=== PATIENT | female | born 2000 | race Caucasian/White ===

== ENCOUNTER 2023-02-15 05:14 | Observation (INO) ==
[2023-02-15] MEDS ORDERED: ONDANSETRON INJ 2 MG/ML 2 ML VIAL IV STA (05:35)
[2023-02-15] MEDS ORDERED: SODIUM CHLORIDE 0.9% 1,000 ML IV STA (05:35)
[2023-02-15 06:03] LABS: Basophils # (auto) 0.08 K/uL (0.00-0.20); Basophils % (auto) 0.5 %; Eosinophils # (auto) 0.15 K/uL (0.00-0.50); Eosinophils % (auto) 0.9 %; Hematocrit (blood only) 40.7 % (37.0-47.0); Hemoglobin 13.9 g/dl (12.0-16.0); Immature Granulocytes # (auto) 0.06 K/uL (0.01-0.20); Immature Granulocytes % (auto) 0.4 %; Lymphocytes # (auto) 1.79 K/uL (1.20-3.40); Lymphocytes % (auto) 10.8 %; Mean Corpuscular Hemoglobin 30.9 pg (25.0-34.0); Mean Corpuscular Hgb Conc 34.2 g/dL (32.0-36.0); Mean Corpuscular Volume 90.4 fL (80.0-100.0); Mean Platelet Volume 10.3 fL (9.4-12.4); Monocytes # (auto) 0.86 K/uL (0.11-0.59); Monocytes % (auto) 5.2 %; Neutrophils # (auto) 13.59 K/uL (1.40-6.50); Neutrophils % (auto) 82.2 %; Platelet Count 217 K/uL (130-400); RDW Coefficient of Variation 12.6 % (11.5-14.5); White Blood Count 16.53 K/ul (4.8-10.8)
[2023-02-15 06:11] LABS: Appearance Urine Cloudy (Clear); Bacteria Urine Automated 1+ (Negative); Bilirubin Urine Negative (Negative); Blood Urine 1+ (Negative); Color Urine Yellow; Epithelial Cell Urine Auto >30 /lpf (0-5); Glucose Urine UA Negative (Negative); Ketones Urine Negative (Negative); Leukocyte Esterase Urine Trace (Negative); Nitrite Urine Negative (Negative); Protein Urine Negative (Negative); RBC Urine Automated 0-4 /hpf (0-4); Specific Gravity Urine 1.024 (1.000-1.030); Urobilinogen Urine Negative (Negative)
[2023-02-15 06:16] LABS: Albumin Globulin Ratio 1.9 (0.9-2); Albumin Level 4.8 gm/dl (3.4-5.0); BUN Creatinine Ratio 19.4 (10-20); Bilirubin,Total 0.7 mg/dl (0.2-1.0); Creatinine Clr Calc Pharmacy 82.6 ml/min; Est GFR (African American) 101.8 ml/min; Est GFR (Non-African American) 87.9 ml/min; Globulin 2.5 gm/dl (2.5-4.0); Potassium 3.5 mmol/L (3.5-5.1); Total Protein 7.3 gm/dl (6.0-8.3)
--- NOTE | 2023-02-15 06:41 | Emergency Department Note ---
History of Present Illness General Chief complaint: Abdominal Pain Stated complaint: REALLY SHARP PAIN IN LRQ, VOMITING, APPY? Time Seen by Provider: 02/15/23 06:29 Source: patient and RN notes reviewed Mode of arrival: ambulatory Limitations: no limitations History of Present Illness Maximum Pain Intensity: 6 This patient is a 22-year-old female who comes in with right lower quadrant abdominal pain. It started around 9:00 last evening and she felt a little bit better but woke up at 345 with significantly worse pain. She had nausea she vomited once. No blood. She has had diarrhea x1 as well without blood. Denies had a normal period 2 weeks ago no but no vaginal bleed or discharge no dysuria hematuria no trauma or injury. Denies fever chills no chest pain shortness of breath or cough. No history of similar. No abdominal surgeries. No history of gynecologic issues or ovarian cyst Home Medications Medication Instructions Recorded Confirmed Type azelaic acid 15 % topical gel 1 applic topical DAILY PRN Other 02/15/23 02/15/23 History clindamycin phosphate 1 % topical 1 applic topical BID PRN Other 02/15/2308/05 History swab escitalopram oxalate 10 mg tablet 10 mg PO QPM 02/15/23 02/15/23 History norethindrone 1 mg-ethinyl 1 tab PO QPM 02/15/23 02/15/23 History estradiol 10 mcg (24)-iron 10 mcg(2) tablet (Lo Loestrin Fe) propranolol 10 mg tablet 10 mg PO BID PRN anxiety/panic 02/15/23 02/15/23 History Allergies Allergy/AdvReac Type Severity Reaction Status Date / Time No Known Allergies Allergy Verified 08/07/22 20:19 Past Med/Surg History Medical History (Updated 02/15/23 @ 14:19 by Slim Bailey MD) Acute appendicitis Encounter for pre-operative examination Social History Smoking Status: Never smoker Preferred Language: Estonian Communication Ability: Effective Feels Safe at Home: Yes Assistive Devices: None Immunizations: Past medical historydenies any significant medical history except anxiety which she says has been stable. No surgical history Social historyshe is a student at [employer] does not smoke. Drinks socially. Denies drug use Review of Systems A total of 10 systems reviewed and were otherwise negative Physical Exam Vital Signs Vital Signs - 24 hr 02/15/23 05:21 02/15/23 06:56 02/15/23 09:55 Temperature 36.8 C 37.0 C Temperature Source Temporal Artery Scan Oral Pulse Rate 103 H Pulse Rate [Left] 89 68 Pulse Rhythm Regular Pulse Rhythm [Left] Regular Regular Pulse Strength Normal Pulse Strength [Left] Normal Normal Respiratory Rate 20 18 18 Respiratory Effort / Characteristics Non-Labored Spontaneous Non-Labored Non-Labored Spontaneous Respiratory Depth Normal Normal Normal Respiratory Pattern Regular Regular Blood Pressure 108/66 Blood Pressure [Right Arm] 121/93 108/55 L Blood Pressure Mean 80 Blood Pressure Mean [Right Arm] 102 72 Blood Pressure Position Sitting Blood Pressure Position [Right Arm] Sitting Semi-fowlers Pulse Oximetry 99 98 100 Oxygen Delivery Method Room Air Room Air Room Air Sepsis Recent Fever Within 48 Hours No Sepsis New/Unexplained Change in Mental Status N/A Sepsis Action Taken by Nursing No Action Required 02/15/23 09:38 Temperature 37.0 C Temperature Source Oral Pulse Rate Pulse Rate [Left] 66 Pulse Rhythm Pulse Rhythm [Left] Regular Pulse Strength Pulse Strength [Left] Normal Respiratory Rate 18 Respiratory Effort / Characteristics Non-Labored Respiratory Depth Normal Respiratory Pattern Regular Blood Pressure Blood Pressure [Right Arm] 104/61 Blood Pressure Mean Blood Pressure Mean [Right Arm] 75 Blood Pressure Position Blood Pressure Position [Right Arm] Pulse Oximetry 98 Oxygen Delivery Method Room Air Sepsis Recent Fever Within 48 Hours Sepsis New/Unexplained Change in Mental Status Sepsis Action Taken by Nursing General: Well developed well nourished [id number] young female who appears in no acute distress, breathing comfortably on room air. Normal speech HEENT: Normal cephalic atraumatic. Pupils are equal round and reactive to light. Sclera anicteric extraocular movements are intact. Oropharynx is pink with moist mucous membranes. No swelling of the mouth lips or tongue. Neck: Supple with a midline trachea. No meningeal signs or stiffness, no JVD or bruits. No Stridor. Chest: Clear to auscultation bilaterally. No wheezes or rhonchi. No increased work of breathing. Heart: Regular rate and rhythm without murmurs or gallops. Abdomen: Soft, moderately tender in the right lower quadrant nondistended without rebound guarding or rigidity. Extremities: No cyanosis clubbing or edema. No calf tenderness or assymetry Spine/Back. Non tender to palpation. No CVA tenderness Skin: Good turgor without rashes. Neurologic exam: Nonfocal moving all 4 extremities symmetrically Course Administered Medications Lactated Ringer's (Lr) 1,000 mls @ 80 mls/hr IV .[id number] JAZZY Stop: 03/17/23 12:19 Last Admin: 02/15/23 12:30 Dose: 80 mls/hr Documented By: JOHANA Discontinued Medications Bacitracin (Bacitracin Oint 14 Gm Tube) Confirm Administered Dose 45 appln .ROUTE .STK-MED ONE Stop: 02/15/23 10:07 Last Admin: 02/15/23 11:07 Dose: 1 appln Documented By: TOMMIE Bupivacaine HCl (Bupivacaine 0.5 % 5 Mg/1 Ml Mpf 30ml Vial) Confirm Administered Dose 30 ml .ROUTE .STK-MED ONE Stop: 02/15/23 10:07 Last Admin: 02/15/23 11:07 Dose: 7.5 ml Documented By: TOMMIE Sodium Chloride (Nss) 1,000 mls @ 999 mls/hr IV .Q1H1M STA Stop: 02/15/23 06:35 Last Infusion: 02/15/23 06:45 Dose: 0 mls/hr Documented By: Admin: 02/15/23 05:40 Dose: 999 mls/hr Documented By: CORI Cefoxitin Sodium 2,000 mg/ (Dextrose) 60 mls @ 100 mls/hr IV ONE ONE; Protocol Stop: 02/15/23 10:35 Last Infusion: 02/15/23 12:18 Dose: 0 mls/hr Documented By: Admin: 02/15/23 10:23 Dose: 100 mls/hr Documented By: SULEMA Lactated Ringer's (Lr) 1,000 mls @ 15 mls/hr IV .Q24H JAZZY Stop: 03/17/23 10:14 Last Infusion: 02/15/23 12:34 Dose: 0 mls/hr Documented By: Infusion: 02/15/23 10:23 Dose: 15 mls/hr Documented By: Admin: 02/15/23 10:12 Dose: 15 mls/hr Documented By: MING Ioversol (Optiray 320 100ml) 94 ml IV ONCE ONE Stop: 02/15/23 08:23 Last Admin: 02/15/23 08:22 Dose: 94 ml Documented By: SARAH Lidocaine HCl (Lidocaine 1% Local 20 Ml Vial) Confirm Administered Dose 1 ml .ROUTE .STK-MED ONE Stop: 02/15/23 10:07 Last Admin: 02/15/23 11:08 Dose: 7.5 ml Documented By: TOMMIE Ondansetron HCl (Ondansetron Inj 2 Mg/Ml 2 Ml Vial) 4 mg IV NOW STA Stop: 02/15/23 05:36 Last Admin: 02/15/23 05:39 Dose: 4 mg Documented By: CORI Medical Decision Making Differential Diagnosis Appendicitis, ovarian cyst or pathology, UTI, kidney stone, colitis, GI illness, epiploic appendagitis, intra-abdominal process Medical Records Attestation: I reviewed the patient's medical records. Home Medications Current Medication List: was personally reviewed by me Laboratory Data Attestation: I reviewed the patient's lab results. 02/15/23 05:35 02/15/23 05:35 Lab Results 02/15/23 02/15/23 02/15/23 Range/Units 05:34 05:35 05:35 WBC 16.53 H (4.8-10.8) K/ul RBC 4.50 (4.20-5.40) M/uL Hgb 13.9 (12.0-16.0) g/dl Hct 40.7 (37.0-47.0) % MCV 90.4 (80.0-100.0) fL MCH 30.9 (25.0-34.0) pg MCHC 34.2 (32.0-36.0) g/dL RDW Std Deviation 42.0 (36.4-46.3) fL RDW Coeff of Eliazar 12.6 (11.5-14.5) % Plt Count 217 (130-400) K/uL MPV 10.3 (9.4-12.4) fL Immature Gran % (Auto) 0.4 % Neut % (Auto) 82.2 % Lymph % (Auto) 10.8 % [place] % (Auto) 5.2 % Eos % (Auto) 0.9 % Baso % (Auto) 0.5 % Neut # (Auto) 13.59 H (1.40-6.50) K/uL Lymph # (Auto) 1.79 (1.20-3.40) K/uL [place] # (Auto) 0.86 H (0.11-0.59) K/uL Eos # (Auto) 0.15 (0.00-0.50) K/uL Baso # (Auto) 0.08 (0.00-0.20) K/uL Immature Gran # (Auto) 0.06 (0.01-0.20) K/uL Sodium 138 (136-145) mmol/L Potassium 3.5 (3.5-5.1) mmol/L Chloride 104 (98-107) mmol/L Carbon Dioxide 26 (21-32) mmol/L Anion Gap 8 (3-11) BUN 18 (6-23) mg/dl Creatinine 0.93 (0.6-1.2) mg/dl Est Cr Clr Drug Dosing 82.6 ml/min Est GFR ( Amer) 101.8 ml/min Est GFR (Non-Af Amer) 87.9 ml/min BUN/Creatinine Ratio 19.4 (10-20) Glucose 100 H (70-99(Fasting)) mg/dl Calcium 9.0 (8.6-10.3) mg/dl Total Bilirubin 0.7 (0.2-1.0) mg/dl AST 19 (13-39) U/L ALT 15 (7-52) U/L Alkaline Phosphatase 38 (34-104) U/L Total Protein 7.3 (6.0-8.3) gm/dl Albumin 4.8 (3.4-5.0) gm/dl Globulin 2.5 (2.5-4.0) gm/dl Albumin/Globulin Ratio 1.9 (0.9-2) Lipase 16 (11-82) U/L POC Ur Test NEG (NEG) Imaging Data Attestation: I personally reviewed and interpreted this imaging study as follows: My Impression: CAT scan of the abdomen and pelvis-I do not see any bowel obstruction or free air Radiologist's Impression: Abdomen/Pelvis CT 02/15/23 05:53 CT OF THE ABDOMEN AND PELVIS WITH CONTRAST CLINICAL HISTORY: Right lower quadrant pain, vomiting/nausea COMPARISON STUDY: None. TECHNIQUE: Following IV administration of 94 mL of Optiray, axial images of the abdomen and pelvis were obtained from the lung bases to the proximal femurs. Images were reviewed in the axial, sagittal, and coronal planes. IV contrast was administered without complication. Automated exposure control was utilized for the study. A dose lowering technique was utilized adhering to the principles of ALARA. Oral contrast was administered. CT DOSE: 429.97 mGy.cm FINDINGS: Lung bases are unremarkable. No pneumatosis, free air or portal venous gas is present. Periportal edema and gallbladder wall thickening are present. There is no biliary or pancreatic ductal dilatation. The spleen, adrenal glands, kidneys and pancreas are unremarkable. There is no hydronephrosis. There is no evidence for a bowel obstruction. The appendix is mildly distended, measuring 8 mm in thickness. The appendiceal wall is mildly thickened. There is trace fluid adjacent to the appendiceal tip. The appendix is along the medial aspect of the right iliac vessels. There is no free air or abscess. Trace pelvic fluid is also noted. A 2.1 cm dominant follicle within the left ovary is noted. Major vasculature is patent. No fluid collections are present. IMPRESSION: 1. Slightly distended appendix with mild wall thickening and trace periappendiceal fluid. No free air or abscess. The findings favor early acute appendicitis. 2. Trace fluid within the pelvis. 3. Periportal edema and gallbladder wall thickening which may be related to hydration. 4. Dominant follicle within the left ovary. ACT 112: Negative or not required by law. Electronically signed by: Zane Beasley M.D. 02/15/2023 8:50 AM MDM Narrative This patient comes in as described above. She was placed in room C8. She has right lower quadrant abdominal pain. Orders have been started prior to my arrival and she was drinking prep when I saw her she appears well she does have some moderate tenderness in right lateral quadrant. White count is elevated at 16. test is negative. She is no significant acrylate or metabolic abnormality. Her urinalysis does have white cells however she has greater than 30 epithelial cells and appears to be contaminated specimen she has no dysuria hematuria to suggest a UTI. She was offered pain medication but declined. She has no significant electrolyte or metabolic abnormalities. She is not . Her CAT scan shows findings consistent with an early acute appendicitis. I did consult Dr. Lam from surgery he came in and saw the patient and is going to take her to the operating room for appendectomy. Impression & Plan Acute appendicitis, Abdominal pain, Not currently Discharge Plan Visit Data Chief Complaint: Abdominal Pain Stated Complaint: REALLY SHARP PAIN IN LRQ, VOMITING, APPY? ED Provider: Slim Bailey Discharge Problem: Acute appendicitis, Abdominal pain, Not currently Patient Disposition: Admitted As Inpatient Discharge Instructions Interventions: ED Discharge Assessment Last Done: 02/15/23 10:00
[2023-02-15] MEDS ORDERED: OPTIRAY 320 100ml IV ONE (08:22)
--- NOTE | 2023-02-15 08:51 | CT Scan Report ---
CT OF THE ABDOMEN AND PELVIS WITH CONTRAST CLINICAL HISTORY: Right lower quadrant pain, vomiting/nausea COMPARISON STUDY: None. TECHNIQUE: Following IV administration of 94 mL of Optiray, axial images of the abdomen and pelvis we re obtained from the lung bases to the proximal femurs. Images were reviewed in the axial, sagittal, and coronal planes. IV contrast was administered without complication. Automated exposure control wa s utilized for the study. A dose lowering technique was utilized adhering to the principles of ALARA . Oral contrast was administered. CT DOSE: 429.97 mGy.cm FINDINGS: Lung bases are unremarkable. No pneumatosis, free air or portal venous gas is present. Iris portal edema and gallbladder wall thickening are present. There is no biliary or pancreatic ductal di latation. The spleen, adrenal glands, kidneys and pancreas are unremarkable. There is no hydronephros is. There is no evidence for a bowel obstruction. The appendix is mildly distended, measuring 8 mm in thickness. The appendiceal wall is mildly thickened. There is trace fluid adjacent to the appendicea l tip. The appendix is along the medial aspect of the right iliac vessels. There is no free air or ab scess. Trace pelvic fluid is also noted. A 2.1 cm dominant follicle within the left ovary is noted. M ajor vasculature is patent. No fluid collections are present. IMPRESSION: 1. Slightly distended appendix with mild wall thickening and trace periappendiceal fluid. No free air or abscess. The findings favor early acute appendicitis. 2. Trace fluid within the pelvis. 3. Periportal edema and gallbladder wall thickening which may be related to hydration. 4. Dominant follicle within the left ovary. ACT 112: Negative or not required by law. Electronically signed by: Zane Beasley M.D. 02/15/2023 8:50 AM
--- NOTE | 2023-02-15 09:30 | Surgery Consultation ---
Date of Consultation February 15, 2023 Assessment & Plan (1) Acute appendicitis: Assessment: Patient is a 22 years old female who presented to ED with a 1 day history of right lower quadrant pain, with nausea and vomiting. WBC 16,000. CT scan diagnosis of early acute appendicitis. Plan: Based on the patient history physical exam labs and the CT finding. I recommend to do laparoscopy appendectomy possible open. I did talk to patient about the benefit the risk and alternate of the procedure. I indicated the risks may include but not limited such as bleeding, infection, abscess, injury to other organs, bowel obstruction, incisional hernia. Patient understand. She signed informed consent. I answered all questions. History of Present Illness Reason for Consultation: Acute appendicitis Requesting Physician: Slim Bailey History of Present Illness CC: Right lower quadrant pain HPI: Patient is a 22 years old female who presented to ED with 1 day history right lower quadrant pain. The pain started last night around 9 PM. Patient had the worst right lower quadrant pain earlier this morning. Recent nausea and vomiting. No bloody vomiting. diarrhea 1 time. patient denies fever. no dysuria. WBC 16,000. Patient had a CT scan diagnosis early acute appendicitis. Allergies Allergy/AdvReac Type Severity Reaction Status Date / Time No Known Allergies Allergy Verified 08/07/22 20:19 Home Medications Medication Instructions Recorded Confirmed Type azelaic acid 15 % topical gel 1 applic topical DAILY PRN Other 02/15/23 02/15/23 History clindamycin phosphate 1 % topical 1 applic topical BID PRN Other 02/15/23 02/15/23 History swab escitalopram oxalate 10 mg tablet 10 mg PO QPM 02/15/23 02/15/23 History norethindrone 1 mg-ethinyl 1 tab PO QPM 02/15/23 02/15/23 History estradiol 10 mcg (24)-iron 10 mcg(2) tablet (Lo Loestrin Fe) propranolol 10 mg tablet 10 mg PO BID PRN anxiety/panic 02/15/23 02/15/23 History Patient History Social History Smoking Status: Never smoker Preferred Language: Latvian Feels Safe at Home: Yes Review of Systems Constitutional: as per Subjective / HPI Eyes: as per Subjective / HPI Respiratory: as per Subjective / HPI Cardiovascular: as per Subjective / HPI Gastrointestinal: as per Subjective / HPI Genitourinary: as per Subjective / HPI Neurologic: as per Subjective / HPI Psychiatric: as per Subjective / HPI Endocrine: as per Subjective / HPI Hematologic / Lymphatic: as per Subjective / HPI Physical Exam Constitutional: WD/WN, vitals as above Eyes: PERRL, conjunctivae normal, anicteric sclerae Neck: trachea midline, no thyromegaly Respiratory: normal respiratory effort, lungs clear to auscultation Cardiovascular: RRR, no murmur, no edema Gastrointestinal (Abdomen): tenderness at RLQ, no rebound pain, no distend, BS +. Musculoskeletal: no cyanosis or clubbing, extremities motor strength 5/5 Neurologic: patellar DTR's 2+ bilat, sensation intact Psychiatric: A+Ox3, euthymic affect Results & Data Vital Signs (Past 12 Hours) Vital Signs Temp Pulse Pulse Resp BP BP Pulse Ox 02/15/23 06:56 89 18 121/93 98 02/15/23 05:21 36.8 C 103 H 20 108/66 99 O2 Del Method 02/15/23 06:56 Room Air 02/15/23 05:21 Room Air Laboratory Results Lab Results 02/15/23 02/15/23 02/15/23 Range/Units 05:34 05:35 05:35 WBC 16.53 H (4.8-10.8) K/ul RBC 4.50 (4.20-5.40) M/uL Hgb 13.9 (12.0-16.0) g/dl Hct 40.7 (37.0-47.0) % MCV 90.4 (80.0-100.0) fL MCH 30.9 (25.0-34.0) pg MCHC 34.2 (32.0-36.0) g/dL RDW Std Deviation 42.0 (36.4-46.3) fL RDW Coeff of Eliazar 12.6 (11.5-14.5) % Plt Count 217 (130-400) K/uL MPV 10.3 (9.4-12.4) fL Immature Gran % (Auto) 0.4 % Neut % (Auto) 82.2 % Lymph % (Auto) 10.8 % [place] % (Auto) 5.2 % Eos % (Auto) 0.9 % Baso % (Auto) 0.5 % Neut # (Auto) 13.59 H (1.40-6.50) K/uL Lymph # (Auto) 1.79 (1.20-3.40) K/uL [place] # (Auto) 0.86 H (0.11-0.59) K/uL Eos # (Auto) 0.15 (0.00-0.50) K/uL Baso # (Auto) 0.08 (0.00-0.20) K/uL Immature Gran # (Auto) 0.06 (0.01-0.20) K/uL Sodium 138 (136-145) mmol/L Potassium 3.5 (3.5-5.1) mmol/L Chloride 104 (98-107) mmol/L Carbon Dioxide 26 (21-32) mmol/L Anion Gap 8 (3-11) BUN 18 (6-23) mg/dl Creatinine 0.93 (0.6-1.2) mg/dl Est Cr Clr Drug Dosing 82.6 ml/min Est GFR ( Amer) 101.8 ml/min Est GFR (Non-Af Amer) 87.9 ml/min BUN/Creatinine Ratio 19.4 (10-20) Glucose 100 H (70-99(Fasting)) mg/dl Calcium 9.0 (8.6-10.3) mg/dl Total Bilirubin 0.7 (0.2-1.0) mg/dl AST 19 (13-39) U/L ALT 15 (7-52) U/L Alkaline Phosphatase 38 (34-104) U/L Total Protein 7.3 (6.0-8.3) gm/dl Albumin 4.8 (3.4-5.0) gm/dl Globulin 2.5 (2.5-4.0) gm/dl Albumin/Globulin Ratio 1.9 (0.9-2) Lipase 16 (11-82) U/L Urine Color Urine Appearance (Clear) Urine pH (4.5-7.5) Ur Specific [place] (1.000-1.030) Urine Protein (Negative) Urine Glucose (UA) (Negative) Urine Ketones (Negative) Urine Blood (Negative) Urine Nitrite (Negative) Urine Bilirubin (Negative) Urine Urobilinogen (Negative) Ur Leukocyte Esterase (Negative) Urine WBC (Auto) (0-5) /hpf Urine RBC (Auto) (0-4) /hpf U Hyaline Cast (Auto) (0-5) /lpf U Epithel Cells (Auto) (0-5) /lpf Urine Bacteria (Auto) (Negative) POC Ur Test NEG (NEG) 02/15/23 Range/Units Unknown WBC (4.8-10.8) K/ul RBC (4.20-5.40) M/uL Hgb (12.0-16.0) g/dl Hct (37.0-47.0) % MCV (80.0-100.0) fL MCH (25.0-34.0) pg MCHC (32.0-36.0) g/dL RDW Std Deviation (36.4-46.3) fL RDW Coeff of Eliazar (11.5-14.5) % Plt Count (130-400) K/uL MPV (9.4-12.4) fL Immature Gran % (Auto) % Neut % (Auto) % Lymph % (Auto) % [place] % (Auto) % Eos % (Auto) % Baso % (Auto) % Neut # (Auto) (1.40-6.50) K/uL Lymph # (Auto) (1.20-3.40) K/uL [place] # (Auto) (0.11-0.59) K/uL Eos # (Auto) (0.00-0.50) K/uL Baso # (Auto) (0.00-0.20) K/uL Immature Gran # (Auto) (0.01-0.20) K/uL Sodium (136-145) mmol/L Potassium (3.5-5.1) mmol/L Chloride (98-107) mmol/L Carbon Dioxide (21-32) mmol/L Anion Gap (3-11) BUN (6-23) mg/dl Creatinine (0.6-1.2) mg/dl Est Cr Clr Drug Dosing ml/min Est GFR ( Amer) ml/min Est GFR (Non-Af Amer) ml/min BUN/Creatinine Ratio (10-20) Glucose (70-99(Fasting)) mg/dl Calcium (8.6-10.3) mg/dl Total Bilirubin (0.2-1.0) mg/dl AST (13-39) U/L ALT (7-52) U/L Alkaline Phosphatase (34-104) U/L Total Protein (6.0-8.3) gm/dl Albumin (3.4-5.0) gm/dl Globulin (2.5-4.0) gm/dl Albumin/Globulin Ratio (0.9-2) Lipase (11-82) U/L Urine Color Yellow Urine Appearance Cloudy A (Clear) Urine pH 5.0 (4.5-7.5) Ur Specific [place] 1.024 (1.000-1.030) Urine Protein Negative (Negative) Urine Glucose (UA) Negative (Negative) Urine Ketones Negative (Negative) Urine Blood 1+ H (Negative) Urine Nitrite Negative (Negative) Urine Bilirubin Negative (Negative) Urine Urobilinogen Negative (Negative) Ur Leukocyte Esterase Trace H (Negative) Urine WBC (Auto) 5-10 H (0-5) /hpf Urine RBC (Auto) 0-4 (0-4) /hpf U Hyaline Cast (Auto) 1-5 (0-5) /lpf U Epithel Cells (Auto) >30 H (0-5) /lpf Urine Bacteria (Auto) 1+ H (Negative) POC Ur Test (NEG) Diagnostic Findings CT OF THE ABDOMEN AND PELVIS WITH CONTRAST CLINICAL HISTORY: Right lower quadrant pain, vomiting/nausea COMPARISON STUDY: None. TECHNIQUE: Following IV administration of 94 mL of Optiray, axial images of the abdomen and pelvis were obtained from the lung bases to the proximal femurs. Images were reviewed in the axial, sagittal, and coronal planes. IV contrast was administered without complication. Automated exposure control was utilized for the study. A dose lowering technique was utilized adhering to the principles of ALARA. Oral contrast was administered. CT DOSE: 429.97 mGy.cm FINDINGS: Lung bases are unremarkable. No pneumatosis, free air or portal venous gas is present. Periportal edema and gallbladder wall thickening are present. There is no biliary or pancreatic ductal dilatation. The spleen, adrenal glands, kidneys and pancreas are unremarkable. There is no hydronephrosis. There is no evidence for a bowel obstruction. The appendix is mildly distended, measuring 8 mm in thickness. The appendiceal wall is mildly thickened. There is trace fluid adjacent to the appendiceal tip. The appendix is along the medial aspect of the right iliac vessels. There is no free air or abscess. Trace pelvic fluid is also noted. A 2.1 cm dominant follicle within the left ovary is noted. Major vasculature is patent. No fluid collections are present. IMPRESSION: 1. Slightly distended appendix with mild wall thickening and trace periappendiceal fluid. No free air or abscess. The findings favor early acute appendicitis. 2. Trace fluid within the pelvis. 3. Periportal edema and gallbladder wall thickening which may be related to hydration. 4. Dominant follicle within the left ovary.
[2023-02-15] MEDS ORDERED: LIDOCAINE 2% 2 ML VIAL/AMP(20MG/ML) INFIL ONE (09:34)
[2023-02-15] MEDS ORDERED: fentaNYL citrate PF 100 MCG/2 ML VIAL ONE ×2 (09:34→10:39)
[2023-02-15] MEDS ORDERED: ONDANSETRON INJ 2 MG/ML 2 ML VIAL ONE (09:34)
[2023-02-15] MEDS ORDERED: PROPOFOL IV EMULSION 10 MG/ML 20 ML VIAL IV ONE (09:34)
[2023-02-15] MEDS ORDERED: DEXAMETHASONE SOD INJ 4 MG/ML VIAL ONE (09:34)
[2023-02-15] MEDS ORDERED: MIDAZOLAM HCL 1 MG/ML 2ML VIAL ONE (09:34)
[2023-02-15] MEDS ORDERED: ROCURONIUM BROMIDE 10 MG/ML 5 ML VIAL IV ONE (09:34)
--- NOTE | 2023-02-15 09:42 | History & Physical Bridge Note ---
Date of Service February 15, 2023 History & Physical Bridge Note I have examined the patient, reviewed the History & Physical and in the interval since the performance of the History & Physical I have noted the following changes of clinical significance: no changes noted
[2023-02-15] MEDS ORDERED: ePHEDrine sulfate 50 MG/ML AMP IV PRN (09:56)
[2023-02-15] MEDS ORDERED: ATROPINE SULFATE 0.1 MG/ML 10ML SYR IV PRN (09:56)
[2023-02-15] MEDS ORDERED: fentaNYL citrate PF 100 MCG/2 ML VIAL IV PRN (09:56)
[2023-02-15] MEDS ORDERED: ONDANSETRON INJ 2 MG/ML 2 ML VIAL IV PRN ×2 (09:56→12:20)
[2023-02-15] MEDS ORDERED: PROMETHAZINE HCL 6.25 MG in SODIUM CHLORIDE 0.9% 50 ML IV PRN (09:56)
[2023-02-15] MEDS ORDERED: HYDROmorphone INJ 1 MG/ML SYRINGE IV PRN (09:56)
--- NOTE | 2023-02-15 09:58 | Anesthesiology Consultation ---
Date of Service February 15, 2023 Assessment & Plan (1) Encounter for pre-operative examination: Chart Review Chart Review: Acceptable Risk for Surgery and Patient NOT seen in Pre Admission Testing Consults Requested none History Surgery Operation Date: 02/15/23 11:35 Proposed Procedures p Laparoscopic Appendectomy - Constantino Lam MD Height/Weight Height: 5 ft 4 in Weight: 57.3 kg Allergies Allergy/AdvReac Type Severity Reaction Status Date / Time No Known Allergies Allergy Verified 08/07/22 20:19 Medications Home Medications Medication Instructions Recorded Confirmed Last Taken azelaic acid 15 % topical gel 1 applic topical DAILY PRN Other 02/15/23 02/15/23 Unknown clindamycin phosphate 1 % topical 1 applic topical BID PRN Other 02/15/23 02/15/23 Unknown swab escitalopram oxalate 10 mg tablet 10 mg PO QPM 02/15/23 02/15/23 02/14/23 norethindrone 1 mg-ethinyl 1 tab PO QPM 02/15/23 02/15/23 02/14/23 estradiol 10 mcg (24)-iron 10 mcg(2) tablet (Lo Loestrin Fe) propranolol 10 mg tablet 10 mg PO BID PRN anxiety/panic 02/15/23 02/15/23 Unknown Past Medical History Medical History (Updated 02/15/23 @ 09:57 by Fahad Cordoba MD) Acute appendicitis Encounter for pre-operative examination Social History Smoking Status: Never smoker Physical Exam Vital Signs Last Vital Signs Temp 36.8 C 02/15/23 05:21 Pulse 89 02/15/23 06:56 Resp 18 02/15/23 06:56 BP 121/93 02/15/23 06:56 Pulse Ox 98 02/15/23 06:56 O2 Del Method Room Air 02/15/23 06:56 Testing Laboratory Results 02/15/23 05:35 02/15/23 05:35 Urine Color Yellow 02/15/23 Unknown Urine Appearance Cloudy (Clear) A 02/15/23 Unknown Urine pH 5.0 (4.5-7.5) 02/15/23 Unknown Ur Specific Eclectic 1.024 (1.000-1.030) 02/15/23 Unknown Urine Protein Negative (Negative) 02/15/23 Unknown Urine Glucose (UA) Negative (Negative) 02/15/23 Unknown Urine Ketones Negative (Negative) 02/15/23 Unknown Urine Nitrite Negative (Negative) 02/15/23 Unknown Ur Leukocyte Esterase Trace (Negative) H 02/15/23 Unknown Urine WBC (Auto) 5-10 /hpf (0-5) H 02/15/23 Unknown Urine RBC (Auto) 0-4 /hpf (0-4) 02/15/23 Unknown U Hyaline Cast (Auto) 1-5 /lpf (0-5) 02/15/23 Unknown U Epithel Cells (Auto) >30 /lpf (0-5) H 02/15/23 Unknown Urine Bacteria (Auto) 1+ (Negative) H 02/15/23 Unknown 02/15/23 05:34 POC Ur Test NEG
[2023-02-15] MEDS ORDERED: cefOXitin 2,000 MG in DEXTROSE 5% 50 ML IV ONE (10:00)
[2023-02-15] MEDS ORDERED: BACITRACIN OINT 14 GM TUBE ONE (10:06)
[2023-02-15] MEDS ORDERED: BUPIVACAINE 0.5 % 5 MG/1 ML MPF 30ML VIAL ONE (10:06)
[2023-02-15] MEDS ORDERED: LIDOCAINE 1% LOCAL 20 ML VIAL ONE (10:06)
[2023-02-15] MEDS ORDERED: LACTATED RINGER'S 1,000 ML IV SCH ×2 (10:15→12:20)
[2023-02-15] MEDS ORDERED: GLYCOPYRROLATE 0.2 MG/ML VIAL ONE (10:59)
[2023-02-15] MEDS ORDERED: NEOSTIGMINE METHYLSULFATE 1 MG/ML 10ML VIAL ONE (10:59)
[2023-02-15] MEDS ORDERED: PHENYLEPHRINE 100MCG/ML 5ML SYR ONE (11:01)
[2023-02-15] MEDS ORDERED: KETOROLAC 30 MG/ML VIAL ONE (11:01)
--- NOTE | 2023-02-15 11:15 | Post Operative Brief Note ---
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
--- NOTE | 2023-02-15 12:14 | Operative Report ---
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 WBC 16,000. CT scan diagnosis of early acute appendicitis. Plan: Based on the patient history physical exam labs and the CT finding. I recommend to do laparoscopy appendectomy possible open. I did talk to patient about the benefit the risk and alternate of the procedure. I indicated the risks may include but not limited such as bleeding, infection, abscess, injury to other organs, bowel obstruction, incisional hernia. Patient understand. She signed informed consent. I answered all questions. Description of Procedure After we identified patient to verify procedure. We brought patient to the OR. Put the patient on the supine position on the OR table. Patient received a SCD on bilateral legs to prevent DVT. Also patient received 2000 mg cefxitin IV for prophylactic antibiotic. Patient received general anesthesia without difficulty. pt had Spence catheter insertion to drainage urine. The abdomen was propped and dropped in routine sterile fashion. After timeout. I injections of local anesthesia by using 1% lidocaine mixed with 0.5% Marcaine just above the umbilical area. The make a small incisions as above umbilical, open fascia and peritoneum under direct vision. put The Honeycutt trocar in. Connected to CO2 to create pneumoperitoneum, the flow rate is 6 L/min. Pressure no more than 14 mmHg. Once get nice pneumoperitoneum. Put a scopy in to take look around the abdomen. the omental cover on the right lower quadrant area. then we put other two 5 mm trocars on the left lower quadrant area. We used a grasper to to hold cecum area. We found the patient had enlarge appendix with inflammation on appendix, which confirm diagnosis acute appendicitis. We mobilized the appendix by using a harmonic to take down the appendiceal. I used the 45 mm Endo RITA staple transection on the base of appendix. With double identified the base of appendix. Recheck and no active bleeding or leak from staplers. We remove appendix through the catheter bag. then re-inserted a Honeycutt trocar IN and connected to CO2 to create pneumoperitoneum again. Hemostat is obtained. We removed all trocars under direct vision no active bleeding from trocar site. Pneumoperitoneum was released. Close umbilical incision fascia layer by using 0 Vicryl [id number] x2. Closed subcutaneous layer by using 2-0 Vicryl interrupted. Close skin by using 4-0 Vicryl. Close another 5 mm trocar site the skin only by use of 4-0 Vicryl. Put the dressing on. Patient tolerated procedure well. All instrument needle sponge count correct x2 in the case. Patient was transferred to recovery room in stable condition. Specimen sent to pathology. After procedure I did talk to patient about the OR finding and the procedure we did. patient understood. I attest to the content of the Intraoperative Record and any orders documented therein. Any exceptions are noted below.
[2023-02-15] MEDS ORDERED: oxyCODONE/ACETAMINOPHEN 5mg/325mg TAB PO PRN (12:20)
[2023-02-15] MEDS ORDERED: HYDROmorphone INJ 0.5 MG/0.5 ML SYR IV PRN (12:20)
[2023-02-15] MEDS ORDERED: PROPRANOLOL HCL 10 MG TAB PO PRN (12:20)
[2023-02-15] MEDS ORDERED: ACETAMINOPHEN 325 MG TAB PO PRN (12:40)
--- NOTE | 2023-02-15 13:48 | Anesthesiology Progress Note ---
Date of Service February 15, 2023 Anesthesia Post Procedure Vital Signs Vital Signs: Temp Pulse Pulse Pulse Pulse Resp BP 02/15/23 13:30 18 02/15/23 12:59 36.8 C 73 18 02/15/23 12:24 36.7 C 66 18 02/15/23 12:05 70 14 02/15/23 11:50 36.5 C 80 16 02/15/23 11:40 72 14 02/15/23 11:30 70 18 02/15/23 11:22 36.7 C 74 12 02/15/23 09:38 37.0 C 66 18 02/15/23 09:55 37.0 C 68 18 02/15/23 06:56 89 18 02/15/23 05:21 36.8 C 103 H 20 108/66 BP Pulse Ox O2 Del Method O2 Flow Rate 02/15/23 13:30 112/66 96 Room Air 02/15/23 12:59 107/67 98 Room Air 02/15/23 12:24 106/66 100 Room Air 02/15/23 12:05 118/58 L 100 Room Air 02/15/23 11:50 103/68 100 Room Air 02/15/23 11:40 110/69 99 Room Air 02/15/23 11:30 102/59 L 100 Oxymask 8 02/15/23 11:22 109/59 L 98 Oxymask 8 02/15/23 09:38 104/61 98 Room Air 02/15/23 09:55 108/55 L 100 Room Air 02/15/23 06:56 121/93 98 Room Air 02/15/23 05:21 99 Room Air Transfer of Care Handoff Completed per policy Notes Mental Status: alert / awake / arousable and participated in evaluation Patient Amnestic to Procedure: Yes Nausea / Vomiting: adequately controlled Pain: adequately controlled Airway Patency, RR, SpO2: stable & adequate BP & HR: stable & adequate Hydration State: stable & adequate Anesthetic Complications: no major complications apparent and Pt Satisfied with anesthetic care
[2023-02-15] MEDS ORDERED: [UNRECOGNIZED DRUG - REMARK] SCH (16:00)
[2023-02-15] MEDS ORDERED: ESCITALOPRAM OXALATE 10 MG TAB PO SCH (21:00)
--- NOTE | 2023-02-16 15:13 | Discharge Summary ---
Date of Service February 16, 2023 Admission HPI Per Admitting Provider Patient is a 22 years old female who presented to ED with 1 day history right lower quadrant pain. The pain started last night around 9 PM. Patient had the worst right lower quadrant pain earlier this morning. Recent nausea and vomiting. No bloody vomiting. diarrhea 1 time. patient denies fever. no dysuria. WBC 16,000. Patient had a CT scan diagnosis early acute appendicitis. Principal Diagnosis acute appendicitis Discharge Data Allergies Allergy/AdvReac Type Severity Reaction Status Date / Time No Known Allergies Allergy Verified 08/07/22 20:19 Procedures Performed Operation Date: 02/15/23 11:35 Actual Procedures p Laparoscopic Appendectomy(Not Applicable) - Constantino Lam MD Ordered Studies 02/15/23 05:53 CT Abd and Pelvis [CT abd pelvis oral and IV con] Stat Hospital Course (1) Acute appendicitis: Patient taken to operating room from emergency department for laparoscopic appendectomy by Dr. Lam on 02/15/2023. Patient found to have acute appendicitis without perforation or abscess. Patient tolerated procedure withou difficulty and was transferred to med/surg floor for postoperative care. Diet advanced as tolerated, activity as tolerated, pain management and antiemetics as needed. Patient evaluated in afternoon of POD # 0 and doing extremely well, not requiring pain medication, tolerating diet, urinating and ambulating hallway. she was discharged home on POD # 0 in stable condition. Total Time Total Time Spent Total Time Spent (In Minutes): 30 Total Time Includes: Examination of the Patient, Discharge Planning and Medication Reconciliation Discharge Plan Discharge Items Patient Disposition: Home - Self-Care Reason For Visit: VOMITING,LOWER ABDOMINAL PAIN Discharge Diagnosis: acute appendicitis Activity: Per Instructions section Non-emergency contact: Primary Care Provider and Surgeon Call non-emergency contact if: you have any medication questions, your pain is not controlled, your pain is worsening, your pain is concerning for you, you have a fever, your temperature is above 101, your wound has increased redness, your wound has increased drainage and your wound pain has increased Follow-up/Referrals: Lianne Colmenares PA-C [Physician Drill Instructor] - (2 weeks) PCPTHEO [Physician] - Diet: Regular Addtl Attending Provider Instructions: Post-Surgical ~Discharge Instructions Activity Recommendations: - lifting limitation: (20 pounds for 3-4 weeks), - exercise/sex/sports limit: (nonstrenuous for 2 weeks), - driving or machine use limit: (none for 1 week or until pain free and no longer taking narcotic pain medication), - Shower/bathe limit: (september shower beginning Tuesday) Diet: - Resume previous diet SPECIAL CARE INSTRUCTIONS: - May shower on Tuesday, sponge bath and wash hair in meantime. On Tuesday, can remove outer dressings and shower. Let water run over area and pat dry. - Leave steri strips on for one week and then remove. They may fall off on their own that is okay. - Call the surgeon's office with any questions or concerns - - (ex. temperature higher than 101 degrees F, excessive bleeding or pain). MEDICATIONS: - Resume previous medications unless instructed otherwise by your surgeon. - May alternate extra strength Tylenol and Ibuprofen as needed for mild to moderate pain - 650 mg Tylenol every 6 hours as needed - Ibuprofen 600 mg every 6 hours as needed (take with food) - Percocet 1 every 6 hours, as needed for moderate to severe pain - Recommend stool softener (Colace) daily while taking narcotic pain medication to prevent constipation or straining. Drink plenty of water daily. FOLLOW UP VISIT: - If not already scheduled, please call the office to schedule a two week follow-up appointment. Office number When traveling next week, wear YOLANDA stockings during flights and keep your legs moving during the flight if possible to keep blood flow and preventing blood clots from forming. Walk during delays or layover. Avoid lifting your bags/luggage due to lifting restriction. If traveling by car for long distance, recommend stopping every 1-2 hours to walk 5-10 minutes. Pending Studies at Discharge: Yes (appendix pathology, will be reviewed at postop visit) Stand-Alone Forms: My [facility] [employer], Work/School Release, Smoking Cessation Medications and DC Order Prescriptions: New oxycodone-acetaminophen 5-325 mg tablet 1 tab PO Q6H PRN (Reason: pain) Qty: 5 0RF Continued propranolol 10 mg tablet 10 mg PO BID PRN (Reason: anxiety/panic) clindamycin phosphate 1 % swab 1 applic TOPICAL BID PRN (Reason: Other) escitalopram oxalate 10 mg tablet 10 mg PO QPM azelaic acid 15 % gel 1 applic TOPICAL DAILY PRN (Reason: Other) Lo Loestrin Fe 1 mg-10 mcg (24)/10 mcg (2) tablet 1 tab PO QPM Discharge Orders: Discharge Order (Routine); Ordered 02/15/23 Ordered By: Lianne Colmenares Admission Data Admit Date/Time: 02/15/23 11:21 Attending Provider: Constantino Lam Admit Provider: Constantino Lam Primary Care Provider: [facility] Other Interventions: Discharge Summary Assessment (RN) Last Done: 02/15/23 16:52
== END 2023-02-15 17:42 | disposition home or self-care (01) ==
LOC: ED 05:14 → ASU 10:00 → 3E 10:00 → INTOOBSV 11:21 → 3E 11:21